=== PATIENT | male | born 1970 | race American Indian/Alaskan Native ===

== ENCOUNTER 2017-08-26 14:30 | Emergency (ER) | payer SELFPAY ==
[2017-08-26 16:12] VITALS: BP 116/70
== END 2017-08-27 05:39 | disposition left against medical advice (07) ==
LOC: ED 14:30
DX: M54.9 Dorsalgia, unspecified (principal); M79.604 Pain in right leg; Z53.21 Procedure and treatment not carried out due to patient leaving prior to being seen by health care provider

== ENCOUNTER 2017-09-09 08:30 | Emergency (ER) | payer SELFPAY ==
[2017-09-09] MEDS ORDERED: TORADOL IM ONE (12:54)
--- NOTE | 2017-09-09 13:04 | Emergency Department Report ---
ED Back Pain/Injury HPI - General Chief Complaint: Extremity Injury, Upper Stated Complaint: BACK PAIN Time Seen by Provider: 09/09/17 12:35 Source: patient Limitations: No Limitations - History of Present Illness Initial Comments: This is a 47-year-old male nontoxic, well nourished in appearance, no acute signs of distress presents to the ED complaining of chronic intermittent low back pain and right upper back pain/neck. Patient stated the last 2 weeks symptoms are increasing and are not resolved with [id number] medications. Patient denies any trauma to the region. He stated he has a chronic curvature of spine that develops the symptoms. Patient stated his right neck/ shoulder pain has developed 4 days ago when he woke up. Patient denies any trauma to the region. Denies any numbness, tingling, fever, chills, nausea, vomiting, chest pain shortness of breath, headache or stiff neck. Patient stated low back radiates toward the right lower extremity. And describes it as aching with level of 7 out of 10. Patient denies any allergies. Past medical history includes history of heart failure, diabetes, acute IL, and hypertension. MD Complaint: back pain -: Gradual, week(s) (2) Similar Symptoms Previously: Yes Place: home Radiation: none Severity: mild Severity scale (0 -10): 7 Quality: aching Consistency: intermittent Improves With: none Worsens With: none Associated Symptoms: denies other symptoms. denies: confusion, weakness, chest pain, numbness, difficulty walking, cough, difficulty urinating, diaphoresis, incontinence, fever/chills, constipation, abdominal pain, loss of appetite, malaise, nausea/vomiting, rash, seizure, shortness of breath, syncope - Related Data Previous Rx's Medication Instructions Recorded Last Taken Type Carvedilol [Coreg] 6.25 mg PO BID #120 tablet 09/30/15 Unknown Rx Lisinopril [Zestril TAB] 2.5 mg PO QDAY #30 tablet 09/30/15 Unknown Rx Spironolactone [Aldactone] 25 mg PO QDAY #30 tablet 09/30/15 Unknown Rx Warfarin [Coumadin] 10 mg PO DAILY@1700 #30 tablet 09/30/15 Unknown Rx Acetaminophen/Codeine [Tylenol #3] 1 tab PO Q6H PRN #20 tab 02/14/16 Unknown Rx methOCARBAMOL [Robaxin TAB] 500 mg PO Q6H PRN #20 tablet 02/14/16 Unknown Rx Cyclobenzaprine [Flexeril] 10 mg PO BID PRN #5 tablet 09/09/17 Unknown Rx Ibuprofen [Motrin 600 MG tab] 600 mg PO Q8H PRN #30 tablet 09/09/17 Unknown Rx Allergies Allergy/AdvReac Type Severity Reaction Status Date / Time No Known Allergies Allergy Verified 09/26/15 12:14 ED Review of Systems ROS: Stated complaint: BACK PAIN Other details as noted in HPI Constitutional: denies: chills, fever Eyes: denies: eye pain, eye discharge, vision change ENT: denies: ear pain, throat pain Respiratory: denies: cough, shortness of breath, wheezing Cardiovascular: denies: chest pain, palpitations Endocrine: no symptoms reported Gastrointestinal: denies: abdominal pain, nausea, diarrhea Genitourinary: denies: urgency, dysuria Musculoskeletal: denies: back pain, joint swelling, arthralgia Skin: denies: rash, lesions Neurological: denies: headache, weakness, paresthesias Psychiatric: denies: anxiety, depression Hematological/Lymphatic: denies: easy bleeding, easy bruising ED Past Medical Hx - Past Medical History Previous Medical History?: Yes Hx Hypertension: Yes Hx Heart Attack/AMI: Yes Hx Congestive Heart Failure: Yes Hx Diabetes: Yes Hx Seizures: Yes Hx Asthma: No Hx COPD: No Hx HIV: No Additional medical history: Prosthetic mitral valve - Surgical History Past Surgical History?: Yes Hx Open Heart Surgery: Yes Additional Surgical History: Mitral Valve Replacement- 1992 - Social History Smoking Status: Current Every Day Smoker Substance Use Type: None - Medications Home Medications: Home Medications Medication Instructions Recorded Confirmed Last Taken Type Carvedilol [Coreg] 6.25 mg PO BID #120 tablet 09/30/15 Unknown Rx Lisinopril [Zestril TAB] 2.5 mg PO QDAY #30 tablet 09/30/15 Unknown Rx Spironolactone [Aldactone] 25 mg PO QDAY #30 tablet 09/30/15 Unknown Rx Warfarin [Coumadin] 10 mg PO DAILY@1700 #30 tablet 09/30/15 Unknown Rx Acetaminophen/Codeine [Tylenol #3] 1 tab PO Q6H PRN #20 tab 03/22/16 Unknown Rx methOCARBAMOL [Robaxin TAB] 500 mg PO Q6H PRN #20 tablet 02/14/16 Unknown Rx Cyclobenzaprine [Flexeril] 10 mg PO BID PRN #5 tablet 09/09/17 Unknown Rx Ibuprofen [Motrin 600 MG tab] 600 mg PO Q8H PRN #30 tablet 09/09/17 Unknown Rx ED Physical Exam - General Limitations: No Limitations General appearance: alert, in no apparent distress - Head Head exam: Present: atraumatic, normocephalic, normal inspection - Eye Eye exam: Present: normal appearance, PERRL, EOMI. Absent: scleral icterus, conjunctival injection, nystagmus, periorbital swelling, periorbital tenderness Pupils: Present: normal accommodation - ENT ENT exam: Present: normal exam, normal orophraynx, mucous membranes moist, TM's normal bilaterally, normal external ear exam - Neck Neck exam: Present: normal inspection, full ROM. Absent: tenderness, meningismus, lymphadenopathy, thyromegaly - Respiratory Respiratory exam: Present: normal lung sounds bilaterally. Absent: respiratory distress, wheezes, rales, rhonchi, stridor, chest wall tenderness, accessory muscle use, decreased breath sounds, prolonged expiratory - Cardiovascular Cardiovascular Exam: Present: regular rate, normal rhythm, normal heart sounds. Absent: bradycardia, tachycardia, irregular rhythm, systolic murmur, diastolic murmur, rubs, gallop - GI/Abdominal GI/Abdominal exam: Present: soft, normal bowel sounds. Absent: distended, tenderness, guarding, rebound, rigid, diminished bowel sounds - Rectal Rectal exam: Present: deferred - Extremities Exam Extremities exam: Present: normal inspection, full ROM, normal capillary refill. Absent: tenderness, pedal edema, joint swelling, calf tenderness - Back Exam Back exam: Present: normal inspection, full ROM, paraspinal tenderness ( cervical and lumbar region), rash noted. Absent: tenderness, CVA tenderness (R) , CVA tenderness (L), muscle spasm, vertebral tenderness - Expanded Back Exam Expanded Back exam: Absent: saddle anesthesia Back exam: Negative Straight Leg Raising: Left, Right - Neurological Exam Neurological exam: Present: alert, oriented X3, CN II-XII intact, normal gait, reflexes normal - Psychiatric Psychiatric exam: Present: normal affect, normal mood - Skin Skin exam: Present: warm, dry, intact, normal color. Absent: rash ED Course Vital Signs 09/09/17 08:50 Temperature 98.2 F Pulse Rate 75 Blood Pressure 112/88 O2 Sat by Pulse 100 Oximetry - Reevaluation(s) Reevaluation #1: 09/09/17 13:06 Patient is speaking in full sentences with no signs of distress noted. ED Medical Decision Making - Medical Decision Making 47-year-old male that presents with low back strain and muscular pain to upper back. Patient was examined by me and patient is stable. Patient received Toradol 30 mg IM in the ED which patient stated that this has subsided. Patient received Flexeril and ibuprofen and discharge and was instructed not to operate any machinery while taking Flexeril due to sedation/drowsiness. Patient was instructed to follow-up with a primary care doctor in 3-5 days or if symptoms worsen and continue return to emergency room as soon as possible possible. Patient is hemodynamically stable with stable vital signs. Patient states he is feeling better. At time time of discharge, the patient does not seem toxic or ill in appearance. No acute signs of distress noted. Patient agrees to discharge treatment plan of care. No further questions noted by the patient. Critical care attestation.: If time is entered above; I have spent that time in minutes in the direct care of this critically ill patient, excluding procedure time. ED Disposition Clinical Impression: Muscle spasm Low back strain Qualifiers: Encounter type: initial encounter Qualified Code(s): S39.012A - Strain of muscle, fascia and tendon of lower back, initial encounter Disposition: DC- TO HOME OR SELFCARE Is pt being admited?: No Does the pt Need Aspirin: No Condition: Stable Instructions: Low Back Strain (ED), Muscle Spasm (ED), Ibuprofen (By mouth), Cyclobenzaprine (By mouth) Additional Instructions: Follow-up with a primary care doctor in 3-5 days or if symptoms worsen and continue return to emergency room as soon as possible possible. Take ibuprofen and Flexeril as prescribed. Do not operate heavy machinery while taking Flexeril due to sedation Prescriptions: Cyclobenzaprine [Flexeril] 10 mg PO BID PRN #5 tablet PRN Reason: Muscle Spasm Ibuprofen [Motrin 600 MG tab] 600 mg PO Q8H PRN #30 tablet PRN Reason: Pain Referrals: PRIMARY CARE, [Primary Care Provider] - 3-5 Days ELLIE WHITT MD [Staff Physician] - 3-5 Days [facility] [Outside] - 3-5 Days [facility] [Outside] - 3-5 Days Forms: Work/School Release Form(ED)
[2017-09-09 14:00] VITALS: BP 115/84
== END 2017-09-09 13:59 | disposition home or self-care (01) ==
LOC: ED 08:30
DX: S39.012A Strain of muscle, fascia and tendon of lower back, initial encounter (principal); M62.838 Other muscle spasm; I10 Essential (primary) hypertension; E11.9 Type 2 diabetes mellitus without complications; R56.9 Unspecified convulsions; I25.2 Old myocardial infarction; F17.200 Nicotine dependence, unspecified, uncomplicated; Z98.890 Other specified postprocedural states; X58.XXXA Exposure to other specified factors, initial encounter; Y93.9 Activity, unspecified; Y99.9 Unspecified external cause status; Y92.89 Other specified places as the place of occurrence of the external cause
CPT/HCPCS: 96372; 99282; J1885

== ENCOUNTER 2017-10-02 10:04 | Emergency (ER) | payer SELFPAY ==
[2017-10-02 10:39] VITALS: BP 108/71
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
== END 2017-10-02 16:03 | disposition home or self-care (01) ==
LOC: ED 10:04
DX: M54.5 Low back pain (principal); M54.6 Pain in thoracic spine; I11.0 Hypertensive heart disease with heart failure; I50.9 Heart failure, unspecified; I25.2 Old myocardial infarction; E11.9 Type 2 diabetes mellitus without complications; F17.210 Nicotine dependence, cigarettes, uncomplicated; F12.10 Cannabis abuse, uncomplicated; Z79.01 Long term (current) use of anticoagulants
CPT/HCPCS: 82962; 99283